=== PATIENT | male | born 1980 | race Caucasian/White ===

== ENCOUNTER 2017-03-07 13:48 | Emergency (ER) | payer OTHER ==
[~2017-03-07] VITALS: Ht 185.4 cm; Wt 122.5 kg
[2017-03-07 14:03] VITALS: BP_SYST 134
[2017-03-07 14:41] LABS: BASOPHILS % (AUTO) 0.5 % (0.0-2.0); EOSINOPHILS # (AUTO) 0.6 K/uL (0.0-0.4); EOSINOPHILS % (AUTO) 6.5 % (0.0-4.0); HEMATOCRIT 45.3 % (36-54); HEMOGLOBIN 15.2 g/dL (14.0-18.0); LYMPHOCYTES # (AUTO) 2.2 K/uL (1.0-5.5); LYMPHOCYTES % (AUTO) 25.6 % (20.5-51.5); MEAN CORPUSCULAR HEMOGLOBIN 29 pg (27-31); MEAN CORPUSCULAR HGB CONC 34 % (32-36); MEAN CORPUSCULAR VOLUME 87 fL (79.0-98.0); MONOCYTES # (AUTO) 0.7 K/uL (0.0-1.0); MONOCYTES % (AUTO) 8.3 % (1.7-9.3); NEUTROPHILS # (AUTO) 5.1 K/uL (1.8-7.7); NEUTROPHILS % (AUTO) 59.1 % (40.0-70.0); PLATELET COUNT (AUTO) 220 K/uL (130-430); RED BLOOD CELL COUNT(AUTO) 5.19 MIL/uL (4.2-6.2); RED CELL DISTRIBUTION WIDTH 12.4 % (9.0-15.0); WHITE BLOOD COUNT (AUTO) 8.6 K/uL (4.8-10.8)
[2017-03-07 14:53] LABS: CALCIUM 8.6 mg/dL (8.4-11.0); CREATININE 1.14 mg/dL (0.55-1.30)
[2017-03-07 14:58] LABS: PROTHROMBIN TIME 10.8 SECS (9.5-12.5)
[2017-03-07 14:59] LABS: ALBUMIN 3.8 g/dL (3.4-4.8); TOTAL BILIRUBIN 0.5 mg/dL (0.0-1.0); TOTAL PROTEIN, SERUM 7.7 g/dL (6.4-8.3)
[2017-03-07] MEDS ORDERED: HEPARIN SODIUM,PORCINE 5000 UNITS/ML VIAL IVP ONE ×2 (17:00)
[2017-03-07] MEDS ORDERED: KETOROLAC TROMETHAMINE 30 MG VIAL IVP ONE (17:15)
[2017-03-07 19:18] VITALS: BP_SYST 107
== END 2017-03-07 19:18 | disposition short-term general hospital (02) ==
LOC: SED 13:48
DX: I82.812 Embolism and thrombosis of superficial veins of left lower extremity (principal)
CPT/HCPCS: 36415; 71010; 80053; 85025; 85379; 85610; 85730; 93005; 93971; 96374; 96375; 99285; J1644; J1885

== ENCOUNTER 2018-03-01 19:58 | Inpatient (IN) | payer OTHER ==
[~2018-03-01] VITALS: Ht 185.4 cm; Wt 120.4 kg
--- NOTE | 2018-03-01 19:58 | NUR ---
Placed in room 6. Placed on manager cardiac, blood pressure machine and pulse oximeter. To gown for exam. Side rails up. Report given to Ni DE ANDA.
[2018-03-01 20:00] VITALS: BP_SYST 133
--- NOTE | 2018-03-01 20:00 | NUR ---
Pt AAOx4 present to ED c/o SOB while walking x 1 week. Pt states he has recently been inhaling paint fumes and moving heavy dressers in his garage which exacerbates his SOB. Pt denies N/V/D/CP. Skin pink dry and warm, no other injuries/complaints per pt/noted. Will continue to monitor.
--- NOTE | 2018-03-01 20:01 | NUR ---
ER Dr. Russell at bedside examining patient.
[2018-03-01 21:12] LABS: BASOPHILS # (AUTO) 0.1 K/uL (0.0-0.2); EOSINOPHILS # (AUTO) 0.2 K/uL (0.0-0.4); EOSINOPHILS % (AUTO) 1.3 % (0.0-4.0); LYMPHOCYTES # (AUTO) 1.6 K/uL (1.0-5.5); MONOCYTES # (AUTO) 0.6 K/uL (0.0-1.0)
[2018-03-01 21:15] LABS: BASOPHILS % (AUTO) 0.7 % (0.0-2.0); HEMATOCRIT 48.4 % (36-54); HEMOGLOBIN 16.6 g/dL (14.0-18.0); LYMPHOCYTES % (AUTO) 12.9 % (20.5-51.5); MEAN CORPUSCULAR HEMOGLOBIN 30 pg (27-31); MEAN CORPUSCULAR HGB CONC 34 % (32-36); MEAN CORPUSCULAR VOLUME 87 fL (79.0-98.0); MONOCYTES % (AUTO) 5.1 % (1.7-9.3); NEUTROPHILS # (AUTO) 9.8 K/uL (1.8-7.7); PLATELET COUNT (AUTO) 268 K/uL (130-430); RED BLOOD CELL COUNT(AUTO) 5.54 MIL/uL (4.2-6.2); RED CELL DISTRIBUTION WIDTH 11.8 % (9.0-15.0); WHITE BLOOD COUNT (AUTO) 12.3 K/uL (4.8-10.8)
[2018-03-01 21:23] LABS: CALCIUM 9.2 mg/dL (8.4-11.0); CREATININE 1.32 mg/dL (0.55-1.30); POTASSIUM 4.2 mmol/L (3.5-5.1)
[2018-03-01 21:31] LABS: ALBUMIN 4.2 g/dL (3.4-4.8); TOTAL BILIRUBIN 0.6 mg/dL (0.0-1.0)
[2018-03-01] MEDS ORDERED: ASPIRIN 325 MG TABLET PO ONE (22:00)
[2018-03-01] MEDS ORDERED: IOHEXOL 350 mgI/mL, 150 ML INFUS..BTL IV ONE (22:15)
--- NOTE | 2018-03-01 22:37 | NUR ---
Patient placed on 2 L O2 via NC. aware
[2018-03-01] MEDS ORDERED: HEPARIN 25,000 UNITS/D5W 250ML 250 ML IV ONE (22:45)
[2018-03-01] MEDS ORDERED: HEPARIN SODIUM,PORCINE 5000 UNITS/ML VIAL IVP ONE (22:45)
--- NOTE | 2018-03-01 22:50 | NUR ---
Patient back from [place] via [facility]
[2018-03-01] MEDS ORDERED: ACET-73 PO (23:08)
[2018-03-01] MEDS ORDERED: MELO15TA13 PO (23:08)
[2018-03-01] MEDS ORDERED: *LOVENOX 1MG/KG Q12H/PHARMACY XX ONE (23:15)
[2018-03-01] MEDS ORDERED: ENOXAPARIN SODIUM 120 MG/0.8 ML SYRINGE SUBCUT ONE (23:15)
--- NOTE | 2018-03-01 23:21 | NUR ---
ER MD Russell at bedside discussing plan of care with patient
--- NOTE | 2018-03-01 23:36 | NUR ---
Note niya in EDM - 03/02/18 at 0205 by ANISH KALYAN Russell aware of patient meeting SEPSIS protocol. Awaiting orders
[2018-03-02] VITALS (24 sets, daily range): BP systolic 89–153
--- NOTE | 2018-03-02 00:10 | NUR ---
Spoke with MD Koch STAT consult. No orders received
--- NOTE | 2018-03-02 00:31 | NUR ---
SPOKE WITH MD TINOCO COVERING FOR DR RUBY. NO ORDERS RECEIVED
--- NOTE | 2018-03-02 00:56 | NUR ---
Patient will be admitted to care of DR RICHARDSON. Admitted to ICU 5 unit. Will go to room 5. Belongings list completed. Summary report printed. Report will be given at bedside.
--- NOTE | 2018-03-02 00:56 | NUR ---
Lesa núñez in [facility] - 03/02/18 at 0205 by ANISH Patient ICU HOLD awaiting ICU nurse
--- NOTE | 2018-03-02 00:57 | NUR ---
RT at bedside for breathing treatment
[2018-03-02] MEDS ORDERED: NITROGLYCERIN 0.4 MG TAB.SUBL SL ONE (01:00)
[2018-03-02] MEDS ORDERED: FAMOTIDINE 20 MG TABLET PO ONE (01:00)
[2018-03-02] MEDS ORDERED: NITROGLYCERIN 0.4 MG TAB.SUBL SL PRN (01:15)
--- NOTE | 2018-03-02 01:19 | NUR ---
Transfer to icu5 via ACLS protocol. Licensed nurse present. IV present no signs or symptoms of infiltration.
--- NOTE | 2018-03-02 01:25 | NUR ---
ADMISSION ASSESSMENT, RECEIVED PT FROM ER VIA VAN WITH C/O SOB.ADMISSION DX RHIANNA PE.ADMITTED AND MADE PT COMFORTABLE IN BED.ORIENTED PT TO ROOM AND SURROUNDINGS. DENIES Any chest pain at this time.sob is much improved per pt.VSS.SL INTACT ON LT AC.ON O2 2 L/MIN VIA N/C.O2 SAT 98%.
[2018-03-02] MEDS: IPRATROPIUM BROM 0.5 MG/2.5 ML VIAL.NEB (ATROVENT) INH SCH ×6 (03:40→23:45)
[2018-03-02] MEDS: ALBUTEROL SULFATE 0.083% 2.5 MG/3 ML VIAL.NEB INH SCH ×6 (03:40→23:45)
--- NOTE | 2018-03-02 04:00 | NUR ---
AWAKE, WATCHING TV. DENIES ANY SOB OR CHEST PAIN.
--- NOTE | 2018-03-02 06:45 | NUR ---
CONSULT FOR CALLED SPOKE WITH ELLIE.
--- NOTE | 2018-03-02 07:00 | NUR ---
REPORT GIVEN TO ON COMING RN.
--- NOTE | 2018-03-02 08:00 | NUR ---
OPENING NOTE: RECEIVED PATIENT FROM [facility] NURSE. PATIENT RESTING IN BED WITH HOB ELEVATED. PATIENT IS AAOX4. NO ACUTE SIGNS OF RESP DISTRESS, NO SOB. BREATHING EVEN AND UNLABORED. PATIENT IS ON 2L O2 NC AND TOLERATING WELL, SATURATING AT 98% O2. IV INTACT AND PATENT, NO REDNESS/SWELLING/PAIN TO SITE. DENIES PAIN AT THIS TIME. BED AT LOWEST POSITION, CALL LIGHT IN REACH. WILL CONTINUE TO MONITOR.
[2018-03-02] MEDS ORDERED: FAMOTIDINE 20 MG TABLET PO SCH (09:00)
[2018-03-02 09:06] LABS: CALCIUM 8.9 mg/dL (8.4-11.0); CREATININE 1.32 mg/dL (0.55-1.30); POTASSIUM 4.4 mmol/L (3.5-5.1)
--- NOTE | 2018-03-02 09:11 | NUR ---
DR. BROWNE/DR. RICHARDSON AT BEDSIDE: DR. BROWNE AND DR. RICHARDSON SAW PATIENT AT BEDSIDE. SPOKE TO PATIENT.
[2018-03-02] MEDS ORDERED: *LOVENOX 1MG/KG Q12H/PHARMACY XX ONE (09:45)
[2018-03-02] MEDS ORDERED: ENOXAPARIN SODIUM 120 MG/0.8 ML SYRINGE SUBCUT ONE (10:00)
--- NOTE | 2018-03-02 11:20 | NUR ---
[facility] CALLED: [facility] CALLED, SPOKE TO MACHINE TURNER [place] (CALL BACK NUMBER: [phone]). PER MACHINE TURNER [place] "IF PATIENT IS STABLE, HE CAN BE TRANSFERRED TO [facility]". WILL PAGE DR. RICHARDSON.
--- NOTE | 2018-03-02 11:28 | NUR ---
SPOKE TO DR. RICHARDSON: SPOKE TO DR. RICHARDSON, DR. RICHARDSON AWARE THAT [facility]NA CALLED AND SAID IF PATIENT IS STABLE HE CAN BE TRANSFERRED TO [place]. PER DR. RICHARDSON "CALL DR. RODRIGUEZ THE FLIGHT PURSER AND IF HE CLEARS HIM THEN HE CAN BE TRANSFERRED BY [facility]S WITH OXYGEN".
--- NOTE | 2018-03-02 11:34 | NUR ---
PAGED DR. RODRIGUEZ: PAGED DR. RODRIGUEZ. AWAITING CALL BACK.
--- NOTE | 2018-03-02 12:00 | NUR ---
ROUNDING: PATIENT RESTING IN BED COMFORTABLY. PATIENT IS AWAKE, ALERT, AND ORIENTED. PATIENT IS ON 2L O2 NC AND TOLERATING WELL, SATURATING AT 97% O2. NO ACUTE SIGNS OF RESP DISTRESS, NO SOB. BREATHING EVEN AND UNLABORED. IV INTACT AND PATENT, NO REDNESS/SWELLING TO SITE. DENIES PAIN AT THIS TIME. URINAL WITHIN REACH. BED TA LOWEST POSITION, CALL LIGHT IN REACH. WILL CONTINUE TO MONITOR.
--- NOTE | 2018-03-02 15:04 | NUR ---
DC Planning: late entry for 1150: c/m reported and faxed pt' s info to LASHANDA Weldon at [facility] That the pt is pending space operations clearance for transfer to net work. [facility] made aware : the patient requested transferring to [facility] where he was treated by dr. Bobby Plasencia, the vein specialist. [facility] will call ICU when has an accepting md and bed assignment and to give the transfer instruction. Discharge package was delivered to ICU. LALA Bustillo made aware. Addendum: 03/02/18 at 1515 by Shemar Moralez RN >> @ 1300 : faxed transfer order to [facility] # [phone], [facility] will try to get bed at [place] location.
--- NOTE | 2018-03-02 15:25 | NUR ---
BT INITIATION: Consent signed per patient agreeing to administration of blood. Blood has been type and crossmatched. Blood sent from blood bank. Information on unit of blood checked against patient wristband at bedside by two nurses. All information matches. Patient or responsible libertarian informed of potential complications associated with blood transfusion. Informed of possible transfusion reaction symptoms. Aware of need to notify nurse at once of itching, shortness of breath, flushing, feeling of impending doom, or other symptoms not previously present. Vital signs taken within 5 minutes prior to initiation of transfusion. RN will remain with patient for first 15 minutes of transfusion at which time vital signs will be re-assessed. Addendum: 03/02/18 at 1541 by Alejandro Alexander RN PLEASE DISREGARD NOTE ABOVE. WRONG PATIENT.
--- NOTE | 2018-03-02 16:03 | NUR ---
ROUNDING: FAMILY AT BEDSIDE. PATIENT IS AAOX4. ALL NEEDS MET. DENIES PAIN. PATIENT IS ON 2L O2 NC AND TOLERATING WELL. NO ACUTE SIGNS OF RESP DISTRESS, NO SOB. BREATHING EVEN AND UNLABORED. IV INTACT AND PATENT, NO REDNESS/SWELLING TO SITE. BED AT LOWEST POSITION, CALL LIGHT IN REACH. CONTINUE TO MONITOR.
--- NOTE | 2018-03-02 18:52 | NUR ---
CLOSING NOTE: FAMILY AT BEDSIDE. PATIENT RESTING IN BED. PATIENT IS AAOX4. NO ACUTE SIGNS OF RESP DISTRESS. IV INTACT AND PATENT, NO REDNESS/SWELLING TO SITE. URINAL WITHIN REACH. DENIES PAIN. ALL NEEDS MET AT THIS TIME. SAFETY PRECAUTIONS IN PLACE. WILL ENDORSE PLAN OF CARE TO NOC NURSE.
--- NOTE | 2018-03-02 19:30 | NUR ---
OPENING NOTE PT IN BED. AWAKE, ALERT. DENIES SOB. NO COMPLAINTS OF PAIN OR DISCOMFORT. SINUS RHYTHM ON THE RF TEST TECHNICIAN. AWAITING POTENTIAL TRANSFER TO [facility]. WILL CONTINUE CARE THROUGHOUT SHIFT.
[2018-03-02] MEDS ORDERED: ENOXAPARIN SODIUM 120 MG/0.8 ML SYRINGE SUBCUT SCH (21:00)
--- NOTE | 2018-03-02 22:00 | NUR ---
CASE MANAGEMENT - [facility] SPOKE TO [place] ASH WORKER AT [facility] REQUESTING INFORMATION REGARDING TRANSFER. CURRENTLY NO ACCEPTING DOCTOR BUT CLAIMED TO BE WORKING TO GET BED FOR TRANSFER TONIGHT TO [facility]. RETURN PHONE # .
--- NOTE | 2018-03-02 23:15 | NUR ---
[facility] TRANSFER UPDATE SPOKE TO ANGELO, CASE MANAGEMENT AT [facility]. PT TO BE TRANSFERRED TO [facility]. TO BE TRANSFERRED TO ICU ROOM 227, UNDER CARE OF DR. LIU. Guevara. PT IS NOTIFIED OF TRANSFER, CALLED TO DOUG (PT'S SPOUSE) TO MAKE AWARE OF TRANSFER WELL.
[2018-03-03] VITALS: BP_SYST 110
--- NOTE | 2018-03-03 00:20 | NUR ---
REPORT GIVEN REPORT TO GISELLA AT [facility]. AMBULANCE IS NOW PRESENT FOR TRANSFER.
--- NOTE | 2018-03-03 00:45 | NUR ---
PT LEAVES VIA AMBULANCE PT LEAVES UNIT WITH AMBULANCE, CCT PRESENT. PT STABLE. ALL BELONGINGS ACCOUNTED FOR WITH PATIENT.
== END 2018-03-03 00:45 | disposition short-term general hospital (02) | DRG 175 ==
LOC: SED 19:58 → SIC 03-02 00:45
PROVIDERS: ADMIT Internal Medicine; ATTEND Internal Medicine
DX: I26.09 Other pulmonary embolism with acute cor pulmonale (principal); D68.59 Other primary thrombophilia; G47.33 Obstructive sleep apnea (adult) (pediatric); E66.9 Obesity, unspecified; R09.02 Hypoxemia; N28.9 Disorder of kidney and ureter, unspecified; Z90.49 Acquired absence of other specified parts of digestive tract; Z87.891 Personal history of nicotine dependence; Z86.718 Personal history of other venous thrombosis and embolism; Z88.8 Allergy status to other drugs, medicaments and biological substances; Z68.35 Body mass index [BMI] 35.0-35.9, adult
CPT/HCPCS: 36415; 36600; 71045; 71275; 80048; 80053; 82550-TC; 82803-TC; 83605; 84484; 85025; 85379; 87040-TC; 87081; 93005; 93306; 93970; 94640; 96372; 99291; J1644; J1650; J7613; Q9967